=== PATIENT | female | born 1975 | race Caucasian/White ===

== ENCOUNTER 2018-08-26 18:22 | Emergency (ER) | payer BC ==
--- NOTE | 2018-08-26 18:38 | EDM.PDOC ---
<Logan Rowe - Last Filed: 08/26/18 18:32> ED HPI GENERAL MEDICAL PROBLEM - General Chief Complaint: Chest Pain Stated Complaint: CHEST PAINS Time Seen by Provider: 08/26/18 18:29 Source of Information: Reports: Patient History Limitations: Reports: No Limitations - History of Present Illness INITIAL COMMENTS - FREE TEXT/NARRATIVE: Patient presents with complaints of chest pain that started this AM and has not fully gone away. She describes this pain as centrally located at the sternum with radiation to the back. No throat, neck, or arm pain. No numbness, tingling. No abdominal pain. No urinary symptoms. No blood in urine or stool. No history of ulcers, no prior OR or CVA. No history of cancer or blood clotting disorders. No headaches, blurry vision or change in LOC. Does endorse nausea. Onset: Today, Sudden Duration: Getting Worse Location: Reports: Chest Quality: Reports: Pressure Severity: Moderate Associated Symptoms: Reports: Chest Pain Chest Pain Score (Numeric/FACES): 8 - Related Data Allergies Allergy/AdvReac Type Severity Reaction Status Date / Time No Known Allergies Allergy Verified 08/26/18 18:25 Social & Family History - Tobacco Use Smoking Status *Q: Current Every Day Smoker Years of Tobacco use: 2 Packs/Tins Daily: 0.5 - Alcohol Use Days Per Week of Alcohol Use: 4 Number of Drinks Per Day: 2 Total Drinks Per Week: 8 - Recreational Drug Use Recreational Drug Use: No ED ROS GENERAL - Review of Systems Review Of Systems: See Below Constitutional: Reports: No Symptoms HEENT: Reports: No Symptoms Respiratory: Reports: No Symptoms Cardiovascular: Reports: Chest Pain Endocrine: Reports: No Symptoms GI/Abdominal: Reports: No Symptoms : Reports: No Symptoms Musculoskeletal: Reports: No Symptoms Skin: Reports: No Symptoms Neurological: Reports: No Symptoms Psychiatric: Reports: No Symptoms Hematologic/Lymphatic: Reports: No Symptoms Immunologic: Reports: No Symptoms ED EXAM, GENERAL - Physical Exam Exam: See Below Exam Limited By: No Limitations General Appearance: Alert, WD/WN, Mild Distress Eye Exam: Bilateral Eye: EOMI, Normal Inspection, PERRL Ears: Normal TMs Nose: Normal Inspection, Normal Mucosa, No Blood Throat/Mouth: Normal Inspection, Normal Lips, Normal Teeth, Normal Gums, Normal Oropharynx, Normal Voice, No Airway Compromise Head: Atraumatic, Normocephalic Neck: Normal Inspection, Supple, Non-Tender, Full Range of Motion Respiratory/Chest: No Respiratory Distress, Lungs Clear, Normal Breath Sounds, No Accessory Muscle Use, Chest Non-Tender Cardiovascular: Normal Peripheral Pulses, Regular Rate, Rhythm, No Edema, No Gallop, No JVD, No Murmur, No Rub Peripheral Pulses: 2+: Posterior Tibial (L), Posterior Tibial (R), Dorsalis Pedis (L), Dorsalis Pedis (R) GI/Abdominal: Normal Bowel Sounds, Soft, Non-Tender, No Organomegaly, No Distention, No Abnormal Bruit, No Mass Back Exam: Normal Inspection, Full Range of Motion, NT Extremities: Normal Inspection, Normal Range of Motion, Non-Tender, Normal Capillary Refill, No Pedal Edema Neurological: Alert, Oriented, CN II-XII Intact, Normal Cognition, Normal Gait, Normal Reflexes, No Motor/Sensory Deficits Psychiatric: Normal Affect, Normal Mood Skin Exam: Warm, Dry, Intact, Normal Color, No Rash Lymphatic: No Adenopathy Course - Vital Signs Last Recorded V/S: Last Vital Signs Temp 36.1 C 08/26/18 18:25 Pulse 76 08/26/18 21:33 Resp 16 08/26/18 21:33 BP 133/79 08/26/18 21:33 Pulse Ox 97 08/26/18 21:33 - Orders/Labs/Meds Orders: Active Orders 24 hr Category Date Time Status EKG Documentation Completion [RC] STAT Care 08/26/18 18:29 Active Chest PE [Ang Chest] [CT] Stat Exams 08/26/18 19:27 Taken Alum Hydrox/Mag Hydrox/Simeth [Mag-Al Plus] Med 08/26/18 21:40 Once 30 ml PO ONETIME ONE Sodium Chloride 0.9% [Normal Saline] 1,000 ml Med 08/26/18 18:45 Active IV ASDIRECTED Sodium Chloride 0.9% [Saline Flush] Med 08/26/18 18:45 Active 10 ml FLUSH ASDIRECTED PRN Saline Lock Insert [OM.PC] Routine Oth 08/26/18 18:45 Ordered Medication Orders Sodium Chloride (Normal Saline) 1,000 mls @ 999 mls/hr IV ASDIRECTED CHRISTIAN Last Admin: 08/26/18 18:59 Dose: 999 mls/hr Sodium Chloride (Saline Flush) 10 ml FLUSH ASDIRECTED PRN PRN Reason: Keep Vein Open Last Admin: 08/26/18 21:21 Dose: 10 ml Admin: 08/26/18 19:04 Dose: 10 ml Labs: Laboratory Tests 08/26/18 08/26/18 08/26/18 Range/Units 18:52 18:52 18:52 WBC 11.6 H (4.0-10.0) x10^3/uL RBC 4.50 (4.00-5.50) x10^6/uL Hgb 14.0 (12.0-16.0) g/dL Hct 41.4 (33.0-47.0) % MCV 92.0 (78.0-93.0) fL MCH 31.1 (26.0-32.0) pg MCHC 33.8 (32.0-36.0) g/dL RDW Coeff of Leonid 13.4 (10.0-15.0) % Plt Count 403 H (130-400) x10^3/uL Neut % (Auto) 70.6 (50.0-80.0) % Lymph % (Auto) 22.6 L (25.0-50.0) % [place] % (Auto) 4.2 (2.0-11.0) % Eos % (Auto) 2.3 (0.0-4.0) % Baso % (Auto) 0.3 (0.2-1.2) % PT 9.5 L (10.0-12.8) SEC INR 0.8 L (2.0-3.5) D-Dimer, Quantitative (<=0.58) mg/LFEU Sodium 140 (136-145) mmol/L Potassium 4.2 (3.5-5.1) mmol/L Chloride 104 (98-107) mmol/L Carbon Dioxide 22 (21-32) mmol/L Anion Gap 18.2 (10-20) mmol/L BUN 15 (7-18) mg/dL Creatinine 1.0 (0.55-1.02) mg/dL Est Cr Clr Drug Dosing 67.21 mL/min Estimated GFR (MDRD) > 60 Glucose 125 H (74-106) mg/dL Calcium 9.5 (8.5-10.1) mg/dL Corrected Calcium 9.58 (8.5-10.1) mg/dL Magnesium 2.0 (1.8-2.4) mg/dL Total Bilirubin 0.6 (0.2-1.0) mg/dL AST 20 (15-37) U/L ALT 47 (14-59) U/L Alkaline Phosphatase 66 (46-116) U/L Creatine Kinase 56 (26-192) U/L Troponin I < 0.017 (<=0.056) ng/mL NT-Pro-B Natriuret Pep (<=125) pg/mL Total Protein 7.4 (6.4-8.2) g/dL Albumin 3.9 (3.4-5.0) g/dL Globulin 3.5 Albumin/Globulin Ratio 1.11 TSH, Ultra Sensitive 2.077 (0.358-3.74) uIU/mL 08/26/18 08/26/18 Range/Units 18:52 18:52 WBC (4.0-10.0) x10^3/uL RBC (4.00-5.50) x10^6/uL Hgb (12.0-16.0) g/dL Hct (33.0-47.0) % MCV (78.0-93.0) fL MCH (26.0-32.0) pg MCHC (32.0-36.0) g/dL RDW Coeff of Leonid (10.0-15.0) % Plt Count (130-400) x10^3/uL Neut % (Auto) (50.0-80.0) % Lymph % (Auto) (25.0-50.0) % [place] % (Auto) (2.0-11.0) % Eos % (Auto) (0.0-4.0) % Baso % (Auto) (0.2-1.2) % PT (10.0-12.8) SEC INR (2.0-3.5) D-Dimer, Quantitative 0.84 H (<=0.58) mg/LFEU Sodium (136-145) mmol/L Potassium (3.5-5.1) mmol/L Chloride (98-107) mmol/L Carbon Dioxide (21-32) mmol/L Anion Gap (10-20) mmol/L BUN (7-18) mg/dL Creatinine (0.55-1.02) mg/dL Est Cr Clr Drug Dosing mL/min Estimated GFR (MDRD) Glucose (74-106) mg/dL Calcium (8.5-10.1) mg/dL Corrected Calcium (8.5-10.1) mg/dL Magnesium (1.8-2.4) mg/dL Total Bilirubin (0.2-1.0) mg/dL AST (15-37) U/L ALT (14-59) U/L Alkaline Phosphatase (46-116) U/L Creatine Kinase (26-192) U/L Troponin I (<=0.056) ng/mL NT-Pro-B Natriuret Pep 33 (<=125) pg/mL Total Protein (6.4-8.2) g/dL Albumin (3.4-5.0) g/dL Globulin Albumin/Globulin Ratio TSH, Ultra Sensitive (0.358-3.74) uIU/mL Meds: Medications Generic Name Dose Route Start Last Admin Trade Name Freq PRN Reason Stop Dose Admin Sodium Chloride 1,000 mls @ 999 mls/hr 08/26/18 18:45 08/26/18 18:59 Normal Saline IV 999 mls/hr ASDIRECTED CHRISTIAN Administration Sodium Chloride 10 ml 08/26/18 18:45 08/26/18 21:21 Saline Flush FLUSH 10 ml ASDIRECTED PRN Administration Keep Vein Open Discontinued Medications Generic Name Dose Route Start Last Admin Trade Name Freq PRN Reason Stop Dose Admin Al Hydroxide/Mg Hydroxide 30 ml 08/26/18 18:47 08/26/18 19:05 Gi Cocktail PO 08/26/18 18:48 30 ml ONETIME ONE Administration Al Hydroxide/Mg Hydroxide 30 ml 08/26/18 21:09 08/26/18 21:14 Gi Cocktail PO 08/26/18 21:10 30 ml ONETIME ONE Administration Aspirin 324 mg 08/26/18 18:47 08/26/18 18:58 Aspirin PO 08/26/18 18:48 324 mg ONETIME ONE Administration Famotidine 20 mg 08/26/18 21:08 08/26/18 21:20 Pepcid IVPUSH 08/26/18 21:09 20 mg ONETIME ONE Administration Iopamidol 100 ml 08/26/18 19:47 08/26/18 19:58 Isovue-300 (61%) IVPUSH 08/26/18 19:48 100 ml ONETIME ONE Administration Nitroglycerin 0.4 mg 08/26/18 20:24 08/26/18 20:34 Nitrostat SL 08/26/18 20:25 0.4 mg ONETIME ONE Administration Ondansetron HCl 4 mg 08/26/18 18:59 08/26/18 19:04 Zofran IVPUSH 08/26/18 19:00 4 mg ONETIME ONE Administration Ondansetron HCl Confirm 08/26/18 19:04 08/26/18 19:04 Zofran Administered 08/26/18 19:05 Not Given Dose 4 mg .ROUTE .STK-MED ONE Pantoprazole Sodium 40 mg 08/26/18 21:08 08/26/18 21:15 Protonix Iv IVPUSH 08/26/18 21:09 40 mg ONETIME ONE Administration Departure - Departure Disposition: Home, Self-Care 01 Clinical Impression: Gastritis Qualifiers: Gastritis type: unspecified gastritis Chronicity: acute Gastritis bleeding: without bleeding Qualified Code(s): K29.00 - Acute gastritis without bleeding Instructions: Gastritis, Adult Referrals: PCP,Not In Area [Primary Care Provider] - Forms: ED Department Discharge Additional Instructions: 1. Stay well hydrated and rest 2. Eat a bland diet for the next couple days 3. Use OTC antacids as needed 4. See your Primary next week for a recheck 5. Call or return as symptoms warrant - My Orders Last 24 Hours: My Active Orders 08/26/18 19:27 Chest PE [Ang Chest] [CT] Stat 08/26/18 21:40 Alum Hydrox/Mag Hydrox/Simeth [Mag-Al Plus] 30 ml PO ONETIME ONE - Assessment/Plan Last 24 Hours: My Active Orders 08/26/18 19:27 Chest PE [Ang Chest] [CT] Stat 08/26/18 21:40 Alum Hydrox/Mag Hydrox/Simeth [Mag-Al Plus] 30 ml PO ONETIME ONE <Galdino Madrid - Last Filed: 08/26/18 21:45> Course - Radiology Interpretation Free Text/Narrative:: CTA Chest: No evidence of PE; Tiny hiatal hernia can be associated with GERD See scanned report in EMR for details CT Results Date: 08/26/18 CT Results Time: 20:28 - Re-Assessments/Exams Free Text/Narrative Re-Assessment/Exam: 08/26/18 20:41 Patient reassessed. Continues to have chest pain. Nitro given. CTA of chest negative for PE, has small hiatal hernia. No other symptoms. May consider redosing GI cocktail to help differentiate chest pain. Free Text/Narrative Re-Assessment/Exam: 08/26/18 21:12 Recheck patient. Still having upper epigastric pain. She states the nitro made it a little better and less tight feeling. Hear rate on monitor has been variable, suspect some anxiety. Will redose GI cocktail and give Pepcid and Protonix at this time and see if this helps. Patient was offered admission to watch serial enzymes. She would like to wait and see how the additional medications do. Free Text/Narrative Re-Assessment/Exam: 08/26/18 21:42 Recheck. Patient states she still has the epigastric pain but it is better than when she came in. She states if she had this type of pain right now at home, she would not seek medical help, she feels she can go home. Again, offered admission, patient declined. Will send a small dose of Mylanta home. Discussed what to do if the pain gets worse. Patient and verbalized under standing. Patient discharged in stable condition. Departure - Departure Time of Disposition: 21:44 Reason for Transfer *Q: Other Condition: Good - Problem List Review Problem List Initiated/Reviewed/Updated: Yes - Assessment/Plan Assessment:: Gastritis
[2018-08-26] MEDS ORDERED: Sodium Chloride 0.9% 1,000 ML IV SCH (18:45)
[2018-08-26] MEDS ORDERED: GI Cocktail Oral Solution 30 ML PO ONE ×2 (18:47→21:09)
[2018-08-26] MEDS ORDERED: Aspirin 81 MG Tab.Chew PO ONE (18:47)
[2018-08-26] MEDS ORDERED: Ondansetron 4 MG/2 ML SDV IVPUSH ONE (18:59)
[2018-08-26] MEDS: Sodium Chloride 0.9% 10 ML Syringe FLUSH PRN ×2 (19:04→21:21)
[2018-08-26] MEDS ORDERED: Ondansetron 4 MG/2 ML SDV ONE (19:04)
--- NOTE | 2018-08-26 19:23 | CR ---
[id number] RAD/RAD Chest PA or AP 1V EXAM: SINGLE VIEW CHEST. INDICATION: CHEST PAIN COMPARISON: NO PREVIOUS SIMILAR EXAM IS AVAILABLE FINDINGS: The lungs are clear. The cardiomediastinal contour is normal. IMPRESSION: NO ACUTE PROCESS. Yao Schilling MD 08/26/18 1922 Thank you for allowing us to participate in the care of your patient.
[2018-08-26 19:29] LABS: ANION GAP 18.2 mmol/L (10-20); CHLORIDE,CL 104 mmol/L (98-107); SODIUM,NA 140 mmol/L (136-145)
[2018-08-26] MEDS ORDERED: Iopamidol 612 MG/ML 100 ML Bottle IVPUSH ONE (19:47)
[2018-08-26] MEDS ORDERED: Nitroglycerin 0.4 MG Tab.SL SL ONE (20:24)
[2018-08-26] MEDS ORDERED: Famotidine 20 MG/2 ML SDV IVPUSH ONE (21:08)
[2018-08-26] MEDS ORDERED: Pantoprazole 40 MG Vial IVPUSH ONE (21:08)
[2018-08-26] MEDS ORDERED: Aluminum Hydroxide/Magnesium Hydroxide/Simethicone Susp 30 ML Cup PO ONE (21:40)
--- NOTE | 2018-08-28 09:49 | CT ---
[id number] CT/CTA Chest Exam: CTA Chest Clinical Data: CHEST PAIN. ELEVATED D-DIMER. COMPARISON: NO PREVIOUS SIMILAR EXAM IS AVAILABLE FINDINGS: There are no pulmonary emboli. The great vessels are intact. There is no infiltrate, lung mass, or pleural effusion. There is no mediastinal mass or adenopathy. A small hiatal hernia is seen. There is question of fullness in the franchesca hepatis. There is abdominal pain consider further studies. IMPRESSION: NO PULMONARY EMBOLI. Yao Schilling MD 08/28/18 0948 Thank you for allowing us to participate in the care of your patient.
== END 2018-08-26 22:00 | disposition home or self-care (01) ==
LOC: VM.ED 18:22
DX: K29.00 Acute gastritis without bleeding (principal); F17.210 Nicotine dependence, cigarettes, uncomplicated
CPT/HCPCS: 36415; 71045; 71275; 80053; 82550; 83735; 83880; 84443; 84484; 85025; 85379; 85610; 93005; 96365; 96375; 99285; A9270; C9113; J2405; J3490; J7030; Q9967

== ENCOUNTER 2020-01-04 03:10 | Emergency (ER) | payer BC ==
[2020-01-04] MEDS: GI Cocktail Oral Solution 30 ML PO ONE (03:25)
--- NOTE | 2020-01-04 03:32 | EDM.PDOC ---
ED HPI GENERAL MEDICAL PROBLEM - General Chief Complaint: Chest Pain Stated Complaint: Midsternal chest and epigastric pain Time Seen by Provider: 01/04/20 03:29 Source of Information: Reports: Patient History Limitations: Reports: No Limitations - History of Present Illness INITIAL COMMENTS - FREE TEXT/NARRATIVE: Patient comes emergency department today with complaints of epigastric and chest pain. This patient since about 11:00 last night has had a very constant pain in her epigastric that goes into her back. It kind of radiates up her midsternum as well. She denies any sour taste in her throat or burning sensation. She denies any shortness of breath. She does complain of being quite anxious. She has had multiple episodes of this in the past. She just had a very long episode of this on Tuesday. She tried some Pepcid and bread and that did not improve it. Tonight she tried some Pepcid and Tums without any improvement. She has not had any diarrhea. She recently had her metformin increased from 2 tablets a day to 3 tablets a day but did not obtain any diarrhea from this. She has no fever no chills. No cough congestion shortness of breath. She has not had any surgeries on her gallbladder or appendix. She has no other abdominal pain other than this epigastric pain. She does feel somewhat bloated in her abdomen. No hematuria dysuria or urinary frequency. No flank pain. No COVID exposure COVID symptoms. mid sternal/epigastric Pain Score (Numeric/FACES): 8 - Related Data Allergies Allergy/AdvReac Type Severity Reaction Status Date / Time No Known Allergies Allergy Verified 01/04/20 03:55 Home Meds: Home Meds Omeprazole 20 mg PO DAILY #28 capsule. 01/04/20 [Rx] Phentermine HCl [Lomaira] 8 mg PO DAILY 01/04/20 [History] Sucralfate [Carafate] 1 gm PO QIDACANDBED #120 tablet 01/04/20 [Rx] metFORMIN HCl [Metformin HCl ER] 500 mg PO BID 01/04/20 [History] Past Medical History FINISHED [employer] History: Reports: Polycystic Ovaries ED ROS GENERAL - Review of Systems Review Of Systems: Comprehensive ROS is negative, except as noted in HPI. ED EXAM, GENERAL - Physical Exam Exam: See Below Exam Limited By: No Limitations General Appearance: Alert, WD/WN, No Apparent Distress, Anxious Eye Exam: Bilateral Eye: EOMI, PERRL Ears: Normal External Exam Nose: Normal Inspection Throat/Mouth: Normal Inspection Head: Atraumatic, Normocephalic Neck: Normal Inspection Respiratory/Chest: No Respiratory Distress, Lungs Clear, Normal Breath Sounds, No Accessory Muscle Use, Chest Non-Tender Cardiovascular: Normal Peripheral Pulses, Regular Rate, Rhythm Peripheral Pulses: 2+: Radial (L), Radial (R), Posterior Tibial (L), Posterior Tibial (R), Dorsalis Pedis (L), Dorsalis Pedis (R) GI/Abdominal: Normal Bowel Sounds, Soft, Guarding (epigastric region. ), Tender (Epigastric region. The rest of the abd is none tender. ). No: No Mass, Distended, Rigid, Rebound (Female) Exam: Deferred Rectal (Female) Exam: Deferred Back Exam: Normal Inspection, Full Range of Motion. No: CVA Tenderness (L), CVA Tenderness (R) Extremities: Normal Inspection, Normal Range of Motion, Normal Capillary Refill Neurological: Alert, Oriented, Normal Cognition, Normal Gait, No Motor/Sensory Deficits Psychiatric: Normal Affect, Normal Mood Skin Exam: Warm, Intact, Normal Color, No Rash, Diaphoretic EKG INTERPRETATION EKG Date: 01/04/20 Time: 03:05 Rhythm: NSR Rate (Beats/Min): 65 [place]: Normal P-Wave: Present QRS: Normal ST-T: Normal QT: Normal EKG Interpretation Comments: EKG does have some respiratory variation to it. Tried multiple times to get a better tracing although unable to do so. Course - Vital Signs Last Recorded V/S: Last Vital Signs Temp 96.3 F L 01/04/20 03:10 Pulse 78 01/04/20 03:10 Resp 20 01/04/20 03:10 BP 125/70 01/04/20 03:10 Pulse Ox 100 01/04/20 03:10 - Orders/Labs/Meds Orders: Active Orders 24 hr Category Date Time Status EKG Documentation Completion [RC] STAT Care 01/04/20 03:17 Active Labs: Laboratory Tests 01/04/20 01/04/20 Range/Units 03:55 03:55 WBC 13.3 H (4.0-10.0) x10^3/uL RBC 4.48 (4.00-5.50) x10^6/uL Hgb 14.2 (12.0-16.0) g/dL Hct 41.3 (33.0-47.0) % MCV 92.2 (78.0-93.0) fL MCH 31.7 (26.0-32.0) pg MCHC 34.4 (32.0-36.0) g/dL RDW Coeff of Leonid 12.4 (10.0-15.0) % Plt Count 381 (130-400) x10^3/uL Neut % (Auto) 68.9 (50.0-80.0) % Lymph % (Auto) 22.0 L (25.0-50.0) % [place] % (Auto) 6.2 (2.0-11.0) % Eos % (Auto) 2.7 (0.0-4.0) % Baso % (Auto) 0.2 (0.2-1.2) % Sodium 139 (136-145) mmol/L Potassium 3.8 (3.5-5.1) mmol/L Chloride 102 (98-107) mmol/L Carbon Dioxide 24 (21-32) mmol/L Anion Gap 16.8 (10-20) mmol/L BUN 17 (7-18) mg/dL Creatinine 1.0 (0.55-1.02) mg/dL Est Cr Clr Drug Dosing 68.36 mL/min Estimated GFR (MDRD) 60 Glucose 126 H (74-106) mg/dL Calcium 9.4 (8.5-10.1) mg/dL Corrected Calcium 9.48 (8.5-10.1) mg/dL Total Bilirubin 0.7 (0.2-1.0) mg/dL AST 30 (15-37) U/L ALT 64 H (14-59) U/L Alkaline Phosphatase 58 (46-116) U/L Troponin I < 0.017 (<=0.056) ng/mL Total Protein 7.5 (6.4-8.2) g/dL Albumin 3.9 (3.4-5.0) g/dL Globulin 3.6 Albumin/Globulin Ratio 1.08 Lipase 96 (73-393) U/L Meds: Medications Discontinued Medications Generic Name Dose Route Start Last Admin Trade Name Freq PRN Reason Stop Dose Admin Al Hydroxide/Mg Hydroxide 30 ml 01/04/20 03:17 01/04/20 03:25 Gi Cocktail PO 01/04/20 03:18 30 ml ONETIME ONE Administration Hydromorphone HCl 0.5 mg 01/04/20 04:16 01/04/20 04:28 Dilaudid IV 01/04/20 04:17 0.5 mg ONETIME ONE Administration Omeprazole 40 mg 01/04/20 03:32 01/04/20 03:40 Omeprazole PO 01/04/20 03:33 40 mg ONETIME ONE Administration Omeprazole Confirm 01/04/20 03:47 01/04/20 03:46 Omeprazole Administered 01/04/20 03:48 Not Given Dose 20 mg .ROUTE .[facility] ONE - Re-Assessments/Exams Free Text/Narrative Re-Assessment/Exam: 01/04/20 03:32 GI Cocktail. Labs Ekg unremarkable. 01/04/20 05:20 Her pain somewhat improved with the GI Cocktail. Labs are rather unremarkable other than jennifer elevated ALT> Dialudid with complete resolution of the symptoms. Her abd is soft non-tender on repeat exam. This is really the presentation of the concerns of either peptic ulcer disease or gastroesophageal reflux disease. We will treat her acutely with Carafate and omeprazole for 20 days. If she has recurrence or continued problems I would suggest a upper anoscopy. As well as testing for Helicobacter pylori disease. Discharge directions as below are explained to the patient she was comfortable with this plan and her questions were answered. Departure - Departure Time of Disposition: 05:15 Disposition: Home, Self-Care 01 Clinical Impression: Gastroesophageal reflux disease Qualifiers: Esophagitis presence: esophagitis presence not specified Qualified Code(s): K21.9 - Gastro-esophageal reflux disease without esophagitis Instructions: Gastroesophageal Reflux Disease, Adult, [id number], Nonspecific Chest Pain, Adult, [id number] Forms: ED Department Discharge Additional Instructions: For acute episodes of GERD, OTC Maalox Mylanta or Gaviscon. Carafate 1 tab 4 times, 1/2 hr before meals and bedtime for the next 28 days. RX to [facility]. Omeprazole, 1 capsule every day for the next 28 days. RX to [facility]. Stay away from rich spicy fatty foods coffee and smoking. Return to the ED if new or worsening symptoms. FOllow up with PCP in the next 4-6 days if not improving sooner if worse. Sepsis Event Note (ED) - Focused Exam Vital Signs: Vital Signs Temp Pulse Resp BP Pulse Ox 01/04/20 03:10 96.3 F L 78 20 125/70 100 - My Orders Last 24 Hours: My Active Orders 01/04/20 03:17 EKG Documentation Completion [RC] STAT - Assessment/Plan Last 24 Hours: My Active Orders 01/04/20 03:17 EKG Documentation Completion [RC] STAT
[2020-01-04] MEDS: Omeprazole 20 MG Cap.CR PO ONE (03:40)
[2020-01-04] MEDS: Omeprazole 20 MG Cap.CR ONE (03:46)
[2020-01-04 04:24] LABS: ANION GAP 16.8 mmol/L (10-20); CHLORIDE,CL 102 mmol/L (98-107); SODIUM,NA 139 mmol/L (136-145)
[2020-01-04] MEDS: HYDROmorphone 0.5 MG/0.5 ML Syringe IV ONE (04:28)
== END 2020-01-04 05:30 | disposition home or self-care (01) ==
LOC: VM.ED 03:10
DX: K21.9 Gastro-esophageal reflux disease without esophagitis (principal); Z79.899 Other long term (current) drug therapy
CPT/HCPCS: 36415; 80053; 83690; 84484; 85025; 93005; 96374; 99285; A9270; J1170; 93010; 99284